=== PATIENT | male | born 1985 | race Caucasian/White ===

== ENCOUNTER 2020-06-13 09:14 | Emergency (ER) | payer MEDICAID, OTHER ==
[~2020-06-13] VITALS: Ht 177.8 cm; Wt 95.5 kg
[~2020-06-13 09:14] MED LIST: GUAI120015 PO
[2020-06-13 09:20] VITALS: BP 135/94
[2020-06-13] MEDS ORDERED: proparacaine 0.5% ophthalmic drops 15ml RIGHTEYE ONE (09:55)
[2020-06-13] MEDS ORDERED: ERYT1OIN6 RIGHTEYE (10:50)
== END 2020-06-13 11:13 | disposition home or self-care (01) ==
LOC: ER 09:14
DX: T15.01XA Foreign body in cornea, right eye, initial encounter (principal); H57.11 Ocular pain, right eye; Z79.2 Long term (current) use of antibiotics; Z79.899 Other long term (current) drug therapy; X58.XXXA Exposure to other specified factors, initial encounter; Y93.89 Activity, other specified; Y92.89 Other specified places as the place of occurrence of the external cause; Y99.8 Other external cause status
CPT/HCPCS: 65220; 99284